=== PATIENT | male | born 1970 | race African-American/Black ===

== ENCOUNTER 2018-12-04 15:34 | Outpatient (CLI) | payer OTHER ==
--- NOTE | 2018-12-04 17:24 | XRay Report ---
FINAL REPORT PROCEDURE: Cervical spine. TECHNIQUE: Six views. HISTORY: cervicalgia COMPARISON: No prior studies are available for comparison. FINDINGS: The cervical vertebrae have normal height and alignment. There are no fractures. There is no subluxat ion. There is mild disc space narrowing at C4-5. There are small anterior vertebral body osteophytes at this level. The neural foramina appear adequately patent. The prevertebral soft tissues have mame l thickness. IMPRESSION: Mild degenerative disc disease at C4-5.
== END 2018-12-04 15:35 | disposition home or self-care (01) ==
LOC: XRAY 15:34
PROVIDERS: ATTEND Clinical Nurse Specialist Adult Health
DX: M50.321 Other cervical disc degeneration at C4-C5 level (principal); M48.02 Spinal stenosis, cervical region
CPT/HCPCS: 72050